=== PATIENT | female | born 1995 | race Caucasian/White ===

== ENCOUNTER → 2018-11-27 15:08 | Outpatient (CLI) | payer BC, SELFPAY ==
[2018-11-27 08:20] VITALS: BMI 32.2
== END ==
PROVIDERS: Family Provider Family Medicine; PCP Family Medicine; Referring Provider Physician Assistant; Visit Provider Physician Assistant
DX: J02.9 Acute pharyngitis, unspecified (principal)
CPT/HCPCS: 87081

== ENCOUNTER → 2019-03-24 11:37 | Outpatient (CLI) | payer BC, SELFPAY ==
[2018-11-27 08:20] VITALS: BMI 32.2
--- NOTE | 2019-03-24 11:39 | RAD_ITS ---
STUDY: X-RAY - LEFT KNEE REASON FOR EXAM: Female, 23 years old. Pain following a fall. TECHNIQUE: 3 view(s) of the knee. COMPARISON: None. FINDINGS: Normal visualized distal femur. Normal visualized proximal tibia and fibula. Normal proximal tibiofibular articulation. Normal medial femorotibial compartment. Normal lateral femorotibial compartment. Normal patellofemoral articulation. The soft tissue structures are unremarkable. RAD/Knee 3 Views IMPRESSION: Normal x-ray examination of the knee. Electronically Signed: Marcial Perez, at 12:33 EDT , Service support ,
== END ==
PROVIDERS: Family Provider Family Medicine; PCP Family Medicine; Referring Provider Physician Assistant; Visit Provider Physician Assistant
DX: S89.92XA Unspecified injury of left lower leg, initial encounter (principal)
CPT/HCPCS: 73562

== ENCOUNTER → 2019-12-25 | Outpatient (CLI) | payer OTHER, SELFPAY ==
[2019-09-05 10:08] VITALS: BMI 32.2
[2019-12-25 17:50] LABS: hCG Titer Quant., Serum 6280 mIU/mL (1-3)
== END | disposition home or self-care (01) ==
LOC: LAB 15:11
PROVIDERS: PCP Family Medicine; Referring Provider Obstetrics & Gynecology Gynecology; Visit Provider Obstetrics & Gynecology Gynecology
DX: R10.30 Lower abdominal pain, unspecified (principal)
CPT/HCPCS: 36415; 84702

== ENCOUNTER → 2019-12-27 | Outpatient (CLI) | payer OTHER, SELFPAY ==
[2019-09-05 10:08] VITALS: BMI 32.2
[2019-12-27 12:15] LABS: hCG Titer Quant., Serum 11649 mIU/mL (1-3)
== END | disposition home or self-care (01) ==
LOC: LAB 11:21
PROVIDERS: PCP Family Medicine; Referring Provider Obstetrics & Gynecology Gynecology; Visit Provider Obstetrics & Gynecology Gynecology
DX: R10.30 Lower abdominal pain, unspecified (principal)
CPT/HCPCS: 36415; 84702

== ENCOUNTER → 2019-12-31 | Outpatient (CLI) | payer OTHER, SELFPAY ==
[2019-09-05 10:08] VITALS: BMI 32.2
--- NOTE | 2019-12-31 13:32 | US_ITS ---
STUDY: FIRST TRIMESTER OBSTETRICAL ULTRASOUND REASON FOR EXAM: Female, 24 years old DATING, LMP UNKNOWN LMP: Unknown. TECHNIQUE: Transvaginal TECHNICAL QUALITY: Adequate. PRIOR ULTRASOUND: None. FINDINGS: There is visualization of a single gestational sac in a normal intrauterine position. The mean sac diameter (MSD) measures 2.0 cm, indicating an estimated gestational age (EGA) of 7 weeks, 0 days. The gestational sac shape is within normal limits. Very small hypoechoic area adjacent to the gestational sac measures less than 1 cm, possibly representing a small perigestational hematoma. There is a visualized yolk sac. The yolk sac measures 3 mm. The placenta is non-visualized due to early . There is visualization of a live embryo. The crown-rump length (CRL) measures 0.7 cm, indicating an estimated gestational age (EGA) of 6 weeks, 4 days. There is demonstrated cardiac activity with a heart rate of 120 bpm. The estimated gestation age (EGA) by US is 6 weeks, 6 days. The estimated date of delivery (JANE) by US is 08/19/2020. The uterus measures 8.5 x 5.9 x 4.7 cm. There is no demonstrated uterine fibroid. The cervix is closed. The right ovary measures 2.9 x 2.3 x 1.7 cm. There is no right ovarian cyst. There is no visualized right adnexal mass or complex lesion. The left ovary measures 4.1 x 3.4 x 2.4 cm. Left corpus luteum cyst measures 2.2 cm. There is no visualized left adnexal mass or complex lesion. There is no fluid in the cul de sac. US/Transvaginal w/Preg US IMPRESSION: 1. Single live IUP correlating to gestational age of 6 weeks and 6 days. Electronically Signed: Leif Hou MD ([facility]) at 12:40 EST , Service support ,
== END | disposition home or self-care (01) ==
LOC: US 11:51
PROVIDERS: PCP Family Medicine; Referring Provider Obstetrics & Gynecology Gynecology; Visit Provider Obstetrics & Gynecology Gynecology
DX: R10.30 Lower abdominal pain, unspecified (principal)
CPT/HCPCS: 76817

== ENCOUNTER → 2023-12-13 | Outpatient (CLI) | payer OTHER, SELFPAY ==
--- NOTE | 2023-12-13 13:20 | VDLE_ITS ---
Reason For Study: Bilateral leg pain RIGHT LEFT GSV is normal. GSV is normal. CFV is compressible, spontaneous, phasic, CFV is compressible, spontaneous, phasic, competent and demonstrates normal competent, and demonstrates normal augmentation. augmentation. FV is compressible, spontaneous, phasic, FV is compressible, spontaneous, phasic, competent and demonstrates normal competent and demonstrates normal augmentation. augmentation. POP V is compressible, spontaneous, phasic, POP V is compressible, spontaneous, phasic, competent and demonstrates normal competent and demonstrates normal augmentation. augmentation. T/P Trunk is compressible. T/P Trunk is compressible. PTV is compressible. PTV is compressible. RT PerV is compressible. LT PerV is compressible. Procedure This is a venous duplex using B-mode, color flow and spectral Doppler. Exam performed in department. A preliminary report was called and/or faxed to Dr. Fajardo. VL/Venous Duplex US - Xavier Extrem Interpretation Summary Deep veins of the bilateral lower extremities are patent and compressible segme ntally. There is no evidence of bilateral lower extremity deep vein thrombosis. The bilateral great saphenous veins appear patent and compressible segmentally. Ordering Physician: Suzanne Fajardo Performed By: Kavya Brush RVT
--- OUTSIDE RECORDS SUMMARY | 2023-12-13 13:38 | XMS RPT_ITS | CCD ---
Author Name Unknown Address [address] [facility] [address] [place] [address] Organization [facility] Care Team Providers Care Blending Coordinator Name Role Phone Sophiajeromejesenia RAMÍREZMontse E Unavailable Slarb TWISTER HAND, Stephanie Unavailable Unavailable Edmond TWISTER HAND, Michael Unavailable Unavailable Henry TWISTER HAND, Nasra Unavailable Unavailable PHYSICIAN, NONE Primary Care Physician Unavailab MARCY Queen MD Attending Unavailable PHYSICIAN, NONE Primary Care Unavailable MARCY QUIROZ MD Attending Unavailable PHYSICIAN, NONE Primary Care Unavailable JOSE L LAUGHLIN, OANH Attending Unavailable PHYSICIAN, NONE Primary Care Unavailable KHUSHBU HERRERA-DOMINGO, KT Dyer Attending Unav ailable PHYSICIAN, NONE Primary Care Unavailable KHUSHBU CROWDER, KT Dyer Attending Unav ailable PHYSICIAN, NONE Primary Care Unavailable PHYSICIAN, NONE Primary Care Unavailable KHUSHBU CROWDER, KT Dyer Attending Unav ailable PHYSICIAN, NONE Primary Care Unavailable KHUSHBU CROWDER, KT Dyer Attending Unav ailable SELINA WANG MD Attending Unavailable PHYSICIAN, NONE Primary Care Unavailable SELINA WANG MD Attending Unavailable PHYSICIAN, NONE Primary Care Unavailable SELINA WANG MD Consulting Unavailable SELINA WANG MD Attending Unavailable PHYSICIAN, NONE Primary Care Unavailable Allergies Allergy Classification Reported Allergen(s) Allergy Type Date of Onset Reaction(s) Facility Opioid Agonists (3 sources) Codeine; Translations: [Codeine Sulfate *ANALGESICS - OPIOID*] Drug Allergy Hives [facility] Work Phone: (7 sources) Codeine; Translations: [Codeine Sulfate *ANALGESICS - OPIOID*] Drug Allergy Hives [facility] Work Phone: Medications Current Medications Medication Drug Class(es) Dates Sig (Normalized) Sig (Original) Alcohol Swabs (1 source) Start: 11-28-2023 Alcohol Swabs See Instructions, Check 4x/Day, # 1 EA, 0 Refill(s), Pharmacy: [facility], Gestational diabetes, 162, cm, 11/28/23 11:11:00 EST, Height, 76.3, kg, 06/18/23 10:47:00 EDT, Dosing Weight Start Date: 11/28/23 Status: Ordered Blood Glucose Test Machine (1 source) Start: 11-28-2023 Blood Glucose Test Machine See Instructions, Check 4x/Day, # 1 EA, 0 Refill(s), Pharmacy: [facility], Gestational diabetes, 162, cm, 11/28/23 11:11:00 EST, Height, 76.3, kg, 06/18/23 10:47:00 EDT, Dosing Weight Start Date: 11/28/23 Status: Ordered cephalexin 500 mg oral capsule (1 source) Cephalosporin Antibacterial Start: 09-12-2023 End: 09-17-2023 cephalexin 500 mg oral capsule Dose : 500 mg = 1 cap(s), Oral, q12h, X 5 day(s), # 10 cap(s), 0 Refill(s), 09/17/23 1:34:00 PM EDT, Pharmacy: [facility], 162, cm, 09/12/23 13:25:00 EDT, Height, 76.3, kg, 06/18/23 10:47:00 EDT, Dosing Weight Start Date: 09/12/23 Stop Date: 09/17/23 Status: Ordered metroNIDAZOLE 500 mg oral tablet (1 source) Nitroimidazole Antimicrobial Start: 11-30-2023 End: 12-07-2023 metroNIDAZOLE 500 mg oral tablet Dose : 500 mg = 1 tab(s), Oral, q12h, X 7 day(s), # 14 tab(s), 0 Refill(s), 12/07/23 2:48:00 PM EST, Pharmacy: [facility], 162, cm, 11/28/23 11:11:00 EST, Height, 76.3, kg, 06/18/23 10:47:00 EDT, Dosing Weight Start Date: 11/30/23 Stop Date: 12/07/23 Status: Ordered AD (6 sources) Start: 08-18-2020 AD Oral, qDay, 0 Refill(s) Start Date: 08/18/20 Status: Ordered Vitamin C 250 mg oral tablet, chewable (4 sources) Start: 08-08-2023 Vitamin C 250 mg oral tablet, chewable Dose : 250 mg = 1 tab(s), Chewed, qDay, # 90 tab(s), 0 Refill(s) Start Date: 08/08/23 Status: Ordered Completed/Discontinued Medications Medication Drug Class(es) Dates Sig (Normalized) Sig (Original) miconazole nitrate 20 mg/ml vaginal cream (1 source) Azole Antifungal Start: 09-18-2023 End: 09-25-2023 Monistat 7 vaginal cream with applicator Dose = 1 appl, Vaginal, qHS, X 7 day(s), # 45 gram(s), 0 Refill(s), Pharmacy: [facility], 162, cm, 09/12/23 13:25:00 EDT, Height, kg, 06/18/23 10:47:00 EDT, Dosing Weight Start Date: 09/18/23 Stop Date: 09/25/23 Status: Ordered Multivital Oral Tablet (1 source) take 1 tablet by mouth once daily Multivital Oral Tablet daily Active vitamin (4 sources) vitamin Inactive Problems Active Problems Problem Classification Problem Date Documented Da te Episodic/Chronic Abdominal pain (2 sources) Unspecified abdominal pain; Translations: [Unspecified abdominal pain] Onset: 09-03-2023 Episodic Allergic reactions (9 sources) Allergic condition; Translations: [Allergy] 03-21-2021 Episodic Anxiety disorders (2 sources) Anxiety; Translations: [Anxiety] 08-22-2021 Chronic Past or Other Problems Problem Classification Problem Date Documented Da te Episodic/Chronic Unclassified (4 sources) 3 pregnancies, 3 live births 03-21-2021 Unclassified (7 sources) Unclassified (7 sources) BMI 30.0-30.9,adult Unclassified (7 sources) Nonsmoker Unclassified (4 sources) Encounter for general adult medical examination w/o abnormal findings (Renamed from Encounter for general adult medical examination without abnormal findings) Unclassified (1 source) Spider vein of lower extremity Results Test Name Value Interpretation Reference Range Facil ity Vital Signs Date Time Vital Sign Value Performing Clinician Facility 08-22-2021 13:35-0400 Body height 165.1 cm Nasra Figueroa LPN [facility] Work Phone: 08-22-2021 13:35-0400 Body mass index (BMI) [Ratio] 30.02 kg/m2 Nasra Figueroa LPN [facility] Work Phone: 08-22-2021 13:35-0400 Body surface area Derived from formula 1.89 m2 Nasra Figueroa LPN [facility] Work Phone: 08-22-2021 13:35-0400 Body temperature 97.8 [degF] Nasra Figueroa LPN [facility] Work Phone: Encounters Encounter Date Encounter Type Care Provider Facility Start: 11-29-2023 ambulatory NONE PHYSICIAN Facility :B Start: 11-28-2023 End: 12-03-2023 ambulatory NONE PHYSICIAN Facility:B Start: 11-28-2023 End: 12-02-2023 Outreach Lab KT RÍOS APRN-CNM [facility] Start: 11-28-2023 End: 11-29-2023 ambulatory KT RÍOS VENEER SPLICER-CNM Facility:B Start: 11-17-2023 End: 11-18-2023 ambulatory KTDENNY RÍOS VENEER SPLICER-CNM Facility:B Start: 11-17-2023 End: 11-17-2023 Patient encounter procedure KT RÍOS APRN-CNM [facility] Start: 09-24-2023 End: 09-25-2023 ambulatory MARCY QUIROZ MD Facility:[facility] Start: 09-24-2023 End: 09-24-2023 Patient encounter procedure MARCY QUIROZ MD [facility] Start: 09-12-2023 End: 09-17-2023 ambulatory OANH DOMINGO MD Facility:B Start: 09-12-2023 End: 09-16-2023 Outreach Lab OANH DOMINGO MD [facility] Start: 09-03-2023 End: 09-08-2023 ambulatory MARCY QUIROZ MD Facility:B Start: 07-16-2023 End: 07-21-2023 ambulatory SELINA WANG MD Facility:[facility] Start: 07-16-2023 End: 07-17-2023 ambulatory SELINA WANG MD Facility:B Start: 07-16-2023 End: 07-16-2023 Patient encounter procedure SELINA WANG MD [facility] Start: 12-25-2022 End: 12-26-2022 ambulatory SELINA WANG MD Facility:[facility] Start: 12-25-2022 End: 12-25-2022 Patient encounter procedure SELINA WANG MD [facility] Start: 08-22-2021 End: 08-22-2021 Office outpatient visit 10 minutes Montse Connor ADMISSIONS MANAGER RN Work Phone: [facility] Start: 03-30-2021 End: 03-30-2021 Office outpatient visit 10 minutes Montse Corteskimberlyn ADMISSIONS MANAGER RN Work Phone: [facility] Start: 03-21-2021 End: 03-21-2021 Initial preventive medicine new pt age 18-39yrs Montse Connor ADMISSIONS MANAGER RN Work Phone: [facility] Patient encounter status Montse Luna Connor ADMISSIONS MANAGER RN Work Phone: [facility] Work Phone: Procedures Date Procedure Procedure Detail Performing Clinician Bronchoscopy SELINA WANG MD Plan of Treatment Date Care Activity Detail Author Start: 08-22-2021 Procedure Education Eprescribed prescriptions (G8553) [facility] Work Phone: Start: 08-22-2021 Provider Instructions for Treatment Follow up if no improvement or if symptoms worsen [facility] Work Phone: Start: 03-30-2021 Procedure Education Eprescribed prescriptions (G8553) [facility] Work Phone: Start: 03-30-2021 Provider Instructions for Treatment [facility] Work Phone: Start: 03-21-2021 Assay of thyroid stimulating hormone tsh TSH (THYROID STIMULATING HORMONE) (03861) [facility] Work Phone: Start: 03-21-2021 Blood count complete auto&auto difrntl wbc CBC, Platelets & Auto Diff (16126) [facility] Work Phone: Start: 03-21-2021 Comprehensive metabolic panel Metabolic Panel, Comprehensive (80835) [facility] Work Phone: Start: 03-21-2021 Procedure Education Eprescribed prescriptions (G8553) [facility] Work Phone: Start: 03-21-2021 Provider Instructions for Treatment Follow up in 1 week [facility] Work Phone: [facility] Work Phone: Payers Date Payer Category Payer Unknown [id number] 1994 Unknown [id number] 1994 Unknown [id number] 1994 Unknown [id number] 1994 Unknown [id number] 1994 Unknown [id number] 1994 Unknown [id number] 1994 Unknown [id number] 1994 Unknown [id number] 1994 Unknown [id number] 1994 Unknown [id number] [facility] Social History Date Type Detail Facility Alcohol Use: Alcohol Use: [facility] Work Phone: Tobacco Use: Tobacco Use: [facility] Work Phone: Start: 08-18-2020 Tobacco smoking status Never smoked tobacco (finding) [facility] Sex Assigned At Female [facility] Medical Equipment Procedure Code Equipment Code Equipment Origin al Text Equipment Identifier Dates See Instructions , Check 4x/Day, # 1 EA, 0 Refill(s), Pharmacy: [facility], Gestational diabetes, 162, cm, 11/28/23 11:11:00 EST, Height, 76.3, kg, 06/18/23 10:47:00 EDT, Dosing Weight Start: 11-28-2023 See Instructions , Check 4x/Day, # 1 EA, 0 Refill(s), Pharmacy: [facility], Gestational diabetes, 162, cm, 11/28/23 11:11:00 EST, Height, 76.3, kg, 06/18/23 10:47:00 EDT, Dosing Weight Start: 11-28-2023 Clinical Notes 11-14-2021 to 11-29-2023 Laboratory[facility]atoryRadiologyRadiologyRadiologyRadiology Note Date & Type Note Facility 11-29-2023 Note . MICRO - Microbiology PROCEDURE: Affirm Pathogens DNA Direct Probe [*1] SOURCE: Vaginal Fluid BODY SITE: Vagina COLLECTED DATE/TIME: 11/28/2023 13:48 EST RECEIVED DATE/TIME: 11/28/2023 19:52 EST START DATE/TIME: 11/28/2023 19:52 EST FREE TEXT SOURCE: FINAL REPORTS Final Report [] Verified Date/Time/Personnel: 11/29/2023 10:31 EST Gardnerella vaginalis DNA Probe Positive Steffany species DNA Probe Positive Trichomonas vaginalis DNA Probe Negative Performing Locations *1: This test was performed at: [address], [facility] , [facility] ([place]) 09-15-2023 Note . MICRO - Microbiology PROCEDURE: Urine Culture [*1] SOURCE: Urine, Clean Catch BODY SITE: COLLECTED DATE/TIME: 09/12/2023 17:53 EDT RECEIVED DATE/TIME: 09/12/2023 20:18 EDT START DATE/TIME: 09/12/2023 20:19 EDT FREE TEXT SOURCE: FINAL REPORTS Final Report [] Verified Date/Time/Personnel: 09/15/2023 07:31 EDT 10,000 - 50,000 cfu/ml Mixed growth consistent with normal urogenital deb. PRELIMINARY REPORTS Preliminary Report [] Verified Date/Time/Personnel: 09/13/2023 09:47 EDT Culture results pending. Performing Locations *1: This test was performed at: [address], [facility] , [facility] ([place]) 09-05-2023 Note . MICRO - Microbiology PROCEDURE: Urine Culture [*1] SOURCE: Urine, Clean Catch BODY SITE: COLLECTED DATE/TIME: 09/03/2023 13:44 EDT RECEIVED DATE/TIME: 09/03/2023 19:37 EDT START DATE/TIME: 09/03/2023 19:37 EDT FREE TEXT SOURCE: FINAL REPORTS Final Report [] Verified Date/Time/Personnel: 09/05/2023 07:44 EDT <10,000 cfu/ml. No Significant growth. Sensitivity not indicated. PRELIMINARY REPORTS Preliminary Report [] Verified Date/Time/Personnel: 09/04/2023 09:13 EDT No growth to date Performing Locations *1: This test was performed at: [facility], [address] [place] [address], [id number] , [facility] ([place]) 12-25-2022 Evaluation + Plan note Future Scheduled TestshCG, quantitative(AO) 12/25/22hCG, quantitative(AO) 12/31/22 [facility] 11-14-2021 Note HNO ID: [id number] Author: Salvador De Souza APRN.ADMISSIONS MANAGER RN Service: ? Author Type: Nurse Practitioner Type: Progress Notes Filed: 11/14/2021 8:05 PM Note Text: Subjective HPI Nontoxic-appearing female presents urgent care chief complaint URI-like symptoms. Duration of symptoms 1 day. Associated symptoms head congestion bilateral ear pain body aches chills low-grade temperature. Denies any known sick contacts. States son did develop similar symptoms today. Denies any OTC medication use. Denies history of COVID-19 is vaccinated. Most predominant symptom is fatigue and body aches. Denies any productive cough chest pain pleuritic pain hemoptysis nausea vomiting abdominal pain headache visual changes change in bowel or bladder habits. Past medical history prescription medication use allergies reviewed denies chance of . 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 PAST SURGICAL HISTORY Procedure Laterality Date - NONE ALLERGIES Codeine MEDICATIONS Multivitamin capsule Take 1 capsule by mouth once daily. ibuprofen(ADVIL 200 MG TAB) benzonatate (TESSALON PERLES) 100 mg capsule Take 2 capsules by mouth three times daily as needed for Cough. ondansetron orally disintegrating (ZOFRAN ODT) 4 mg disintegrating tablet Take 1 tablet by mouth every 8 hours as needed for Nausea/Vomiting for up to 4 doses. History reviewed. No pertinent family history. Social History Tobacco Use - Smoking status: Never Smoker - Smokeless tobacco: Never Used Vaping Use - Vaping Use: Never used Substance Use Topics - Alcohol use: No - Drug use: No BP 122/80 Pulse 84 Temp 37.7 ?C (99.9 ?F) Resp 16 Wt 82.6 kg (182 lb) LMP 04/22/2017 SpO2 99% Review of Systems Constitutional: Positive for chills, fever and malaise/fatigue. HENT: Positive for congestion and ear pain. Negative for ear discharge, sinus pain and sore throat. Eyes: Negative for blurred vision, pain, discharge and redness. Respiratory: Negative for cough, hemoptysis, sputum production, shortness of breath, wheezing and stridor. Cardiovascular: Negative for chest pain. Gastrointestinal: Negative for abdominal pain, diarrhea, nausea and vomiting. Musculoskeletal: Positive for myalgias and neck pain. Skin: Negative for itching and rash. Neurological: Negative for dizziness and headaches. Objective Physical Exam Vitals and nursing note reviewed. Constitutional: General: She is not in acute distress. Appearance: She is not diaphoretic. HENT: Head: Normocephalic and atraumatic. Jaw: No trismus. Right Ear: Hearing, ear canal and external ear normal. No decreased hearing noted. No drainage, swelling or tenderness. Tympanic membrane is not perforated, erythematous or bulging. Left Ear: Hearing, tympanic membrane, ear canal and external ear normal. No decreased hearing noted. No drainage, swelling or tenderness. Tympanic membrane is not perforated, erythematous or bulging. Nose: Congestion present. Mouth/Throat: Mouth: Mucous membranes are moist. Pharynx: Oropharynx is clear. Uvula midline. No oropharyngeal exudate, posterior oropharyngeal erythema or uvula swelling. Tonsils: No tonsillar abscesses. Eyes: General: Right eye: No discharge. Left eye: No discharge. Conjunctiva/sclera: Conjunctivae normal. Pupils: Pupils are equal, round, and reactive to light. Cardiovascular: Rate and Rhythm: Normal rate and regular rhythm. Heart sounds: Normal heart sounds. Pulmonary: Effort: Pulmonary effort is normal. No tachypnea, accessory muscle usage or respiratory distress. Breath sounds: Normal breath sounds. No stridor. No wheezing, rhonchi or rales. Chest: Chest wall: No tenderness. Abdominal: Palpations: Abdomen is soft. Tenderness: There is no abdominal tenderness. Musculoskeletal: General: No tenderness. Normal range of motion. Cervical back: Normal range of motion and neck supple. No rigidity or tenderness. Lymphadenopathy: Head: Right side of head: No submental, submandibular, tonsillar, preauricular, posterior auricular or occipital adenopathy. Left side of head: No submental, submandibular, tonsillar, preauricular, posterior auricular or occipital adenopathy. Cervical: No cervical adenopathy. Right cervical: No superficial or posterior cervical adenopathy. Left cervical: No superficial or posterior cervical adenopathy. Skin: General: Skin is warm and dry. Findings: No rash. Neurological: Mental Status: She is alert and oriented to person, place, and time. ASSESSMENT/PLAN: 1. Viral illness - ICD9: 079.99, ICD10: B34.9 - COVID WITH FLUA+B, ROUTINE COVID-19 test ordered results pending alternative diagnosis discussed home quarantining recommended. Patient was educat (more content not included)... [facility] Evaluation + Plan note Future Appointments Appointment Date:08/08/2023 09:45:00 AM Scheduled Provider:MARCY QUIROZ MD Location:[facility] Appointment Type: OV OB Routine Follow Up Diagnostic Tests PendingVaricella Zoster Antibody 07/16/23Rapid Plasma Reagin Test 07/16/23Rubella Antibody 07/16/23 Future Scheduled TestshCG, quantitative(AO) 12/25/22hCG, quantitative(AO) 12/31/22 [facility] Evaluation + Plan note Future Appointments Appointment Date:09/24/2023 10:00:00 AM Scheduled Provider: Location:[facility] Appointment Type:US OB > 14 wks Appointment Date:10/01/2023 08:30:00 AM Scheduled Provider:SELINA WANG MD Location:[facility] Appointment Type: OV OB Routine Follow Up Future Scheduled TestsUS OB > 14 weeks 09/24/23US Transvaginal OB 09/12/23 [facility] Evaluation + Plan note Future Appointments Appointment Date:10/01/2023 08:30:00 AM Scheduled Provider:SELINA WANG MD Location:[facility] Appointment Type: OV OB Routine Follow Up Future Scheduled TestsUS Transvaginal OB 09/12/23 [facility] Evaluation + Plan note Future Appointments Appointment Date:11/21/2023 02:45:00 PM Scheduled Provider:KT RÍOS Location:[facility] Appointment Type: OV OB Routine Follow Up Diagnostic Tests PendingRapid Plasma Reagin Test 11/17/23 Future Scheduled TestsUS Transvaginal OB 09/12/23 [facility] Evaluation + Plan note Future Appointments Appointment Date:12/12/2023 09:00:00 AM Scheduled Provider:MARCY QUIROZ MD Location:[facility] Appointment Type: OV OB Routine Follow Up Appointment Date:12/12/2023 10:30:00 AM Scheduled Provider: Location:[facility] Appointment Type:US OB > 14 wks Future Scheduled TestsUS OB > 14 weeks 12/12/23US Transvaginal OB 09/12/23 [facility] Hospital course Narrative No data available for this section [facility] Discharge instructions No data available for this section [facility] Work Phone: instructions* Name Dates Details Patient Instructions Indication:Acute lymphoblastic leukemia (ALL) in remission Start:21-Mar-2021 Instruction Type:Provider Instructions for Treatment How to Access Health Informa tion Online using Patient Portal and [employer] Indication:Acute lymphoblastic leukemia (ALL) in remission Start:21-Mar-2021 Instruction Type:Patient Education [facility] Work Phone: instructions* Name Dates Details Patient Instructions Indication:BMI 30.0-30.9,adult Start:30-Mar-2021 Instruction Type:Provider Instructions for Treatment How to Access Health Informa tion Online using Patient Portal and [employer] Indication:BMI 30.0-30.9,adult Start:30-Mar-2021 Instruction Type:Patient Education Patient Instructions Indication:Acute lymphoblastic leukemia (ALL) in remission Start:21-Mar-2021 Instruction Type:Provider Instructions for Treatment How to Access Health Informa tion Online using Patient Portal and [employer] Indication:Acute lymphoblastic leukemia (ALL) in remission Start:21-Mar-2021 Instruction Type:Patient Education [facility] Work Phone: Instructions* Name Dates Details Patient Instructions Indication:BMI 30.0-30.9,adult Start:22-Aug-2021 Instruction Type:Provider Instructions for Treatment How to Access Health Informa tion Online using Patient Portal and [employer] Indication:BMI 30.0-30.9,adult Start:22-Aug-2021 Instruction Type:Patient Education Patient Instructions Indication:BMI 30.0-30.9,adult Start:30-Mar-2021 Instruction Type:Provider Instructions for Treatment How to Access Health Informa tion Online using Patient Portal and [employer] Indication:BMI 30.0-30.9,adult Start:30-Mar-2021 Instruction Type:Patient Education Patient Instructions Indication:Acute lymphoblastic leukemia (ALL) in remission Start:21-Mar-2021 Instruction Type:Provider Instructions for Treatment How to Access Health Informa tion Online using Patient Portal and [employer] Indication:Acute lymphoblastic leukemia (ALL) in remission Start:21-Mar-2021 Instruction Type:Patient Education [facility] Work Phone: progress note No data available for this section [facility] Family History No Family History Records FoundUnknown Family Member Name Dates Details Father Comments:High cholesterol Status:Active Maternal Grandfather Comments:Diabetes, unknown t ype of cancer Status:Active Mother Comments:bipolar, precancero us cells-female reproductive Status:Active Paternal Grandfather Comments:Cardiac issues Status:Active Sister 1 Comments:epilepsy Status:Active Unknown Family Member Name Dates Details Father Comments:High cholesterol Status:Active Maternal Grandfather Comments:Diabetes, unknown t ype of cancer Status:Active Mother Comments:bipolar, precancero us cells-female reproductive Status:Active Paternal Grandfather Comments:Cardiac issues Status:Active Sister 1 Comments:epilepsy Status:Active Unknown Family Member Name Dates Details Father Comments:High cholesterol Status:Active Maternal Grandfather Comments:Diabetes, unknown t ype of cancer Status:Active Mother Comments:bipolar, precancero us cells-female reproductive Status:Active Paternal Grandfather Comments:Cardiac issues Status:Active Sister 1 Comments:epilepsy Status:Active Unknown Family Member Name Dates Details Father Comments:High cholesterol Status:Active Maternal Grandfather Comments:Diabetes, unknown t ype of cancer Status:Active Mother Comments:bipolar, precancero us cells-female reproductive Status:Active Paternal Grandfather Comments:Cardiac issues Status:Active Sister 1 Comments:epilepsy Status:Active Summary Purpose Advance Directives No Advanced Directives Records FoundNo Advanced Directives Records Found Additional Source Comments INFORMATION SOURCE (unrecogn ized section and content) DATE CREATED AUTHOR AUTHOR'S ORGANIZ ATION 12/03/2023 [facility] ([place]) Care Team (unrecognized sect ion and content) Care Team Personnel Name: PHYSICIAN, NONE Position: Physician Member Role: Primary Care Physician Care Team Related Persons Name: VY KIMBALL Address: [address] [id number] Name: REHANA INDU Jesenia Address: Home [address] [place] [phone] Patient Care team informatio n (unrecognized section and content) Care Team Personnel Name: PHYSICIAN, NONE Position: Physician Member Role: Primary Care Physician Care Team Related Persons Name: VY KIMBALL Address: [address] [phone] Name: INDU KIMBALL Jesenia Address: [address] [phone] Care Team Personnel Name: PHYSICIAN, NONE Position: Physician Member Role: Primary Care Physician Care Team Related Persons Name: VY KIMBALL Address: Home [address] [place] [address] [phone] Name: ANUPAM KIMBALLLYNDA Rizvi Address: Home [address] [place] [phone] [place] Care Team Personnel Name: PHYSICIAN, NONE Position: Physician Member Role: Primary Care Physician Care Team Related Persons Name: VY KIMBALL Address: Home [address] [place] [phone] Name: REHANAINDU Address: [address] [phone] [place] Care Team Personnel Name: PHYSICIAN, NONE Position: Physician Member Role: Primary Care Physician Care Team Related Persons Name: VY KIMBALL Address: Home [address] [place] [address] [phone] Name: INDU KIMBALL Address: Home [address] [place] [address] [phone] Care Team Personnel Name: PHYSICIAN, NONE Position: Physician Member Role: Primary Care Physician Care Team Related Persons Name: VY KIMBALL Address: Home [address] [place] [address] [phone] Name: INDU KIMBALL Address: [address] [phone] FOR RECORDS PERTAINING TO PATIENTS WHO ARE OR HAVE BEEN ENROLLED IN A CHEMICAL DEPENDENCY/SUBSTANCEABUSE PROGRAM, SOME INFORMATION MAY BE OMITTED. This clinical summary was aggregated from multiple sources. Caution should be exercised in using it in the provision of clinical care. This summary normalizes information from multiple sources, and as a consequence, information in this document may materially change the coding, format and clinical context of patient data. In addition, data may be omitted in some cases. CLINICAL DECISIONS SHOULD BE BASED ON THE PRIMARY CLINICAL RECORDS. [employer] provides no warranty or guarantee of the accuracy or completeness of information in this document.
== END | disposition home or self-care (01) ==
LOC: CVS 13:18
PROVIDERS: Referring Provider Obstetrics & Gynecology Gynecology; Visit Provider Obstetrics & Gynecology Gynecology
DX: O99.891 Other specified diseases and conditions complicating pregnancy (principal); M79.604 Pain in right leg; M79.605 Pain in left leg; Z3A.32 32 weeks gestation of pregnancy
CPT/HCPCS: 93970